=== PATIENT | female | born 1975 | race Caucasian/White ===

== ENCOUNTER → 2020-12-23 | Outpatient (CLI) | payer BC ==
[~2020-12-23] MED LIST: RT-ALBUTEROL SULF 2.5 MG/3 ML PRE-MIX VIAL INH ONE
== END ==
LOC: RT 09:48
PROVIDERS: ATTEND Nurse Practitioner Family
DX: R05 Cough (principal); R06.02 Shortness of breath
CPT/HCPCS: 94060; 94640; 94726; 94729